=== PATIENT | female | born 1995 | race African-American/Black ===

== ENCOUNTER 2017-09-23 20:27 | Emergency (ER) | payer MEDICAID ==
[2017-09-23] MEDS ORDERED: Ketorolac Tromethamine 60 MG/2 ML VIAL ONE (20:58)
--- NOTE | 2017-09-23 21:39 | RAD ---
RIGHT WRIST THREE VIEWS: 09/23/17 INDICATION: Injury, pain. FINDINGS: There is no fracture or dislocation of the right wrist. Carpal alignment is maintained. IMPRESSION: No acute osseous abnormality. POS: TINA
== END 2017-09-23 21:25 | disposition home or self-care (01) ==
LOC: ERS 20:27
DX: S63.501A Unspecified sprain of right wrist, initial encounter (principal); G43.909 Migraine, unspecified, not intractable, without status migrainosus; F41.9 Anxiety disorder, unspecified; X50.0XXA Overexertion from strenuous movement or load, initial encounter
CPT/HCPCS: 96372; J1885

== ENCOUNTER 2018-07-25 18:41 | Emergency (ER) | payer OTHER | END 2018-07-25 19:43 | disposition home or self-care (01) | LOC: ERS 18:41 | DX: L30.4 Erythema intertrigo (principal); F41.9 Anxiety disorder, unspecified | CPT/HCPCS: 99282 ==

== ENCOUNTER 2019-11-14 07:16 | Outpatient (CLI) | payer OTHER ==
--- NOTE | 2019-11-14 08:15 | ULT ---
Obstetric sonogram. HISTORY: evaluation. Second trimester gestation. FINDINGS: Single intrauterine gestation in breech presentation. Cervix closed and 2.5 cm. Amniotic fluid index 11.7. Grade 0 placenta is posterior. No gross intracranial abnormalities demonstrated. Three-vessel cord sh ows a normal insertion. Four-chamber heart motion at 139 bpm. spine and kidneys are intact as visualized. Measurements are as follows: Biparietal diameter 18 weeks 3 days Head circumference 18 weeks 1 day Abdominal circumference 18 weeks 3 days Femur length 18 weeks 2 days [place]lock 60 percentile. Estimated date of delivery based on today's sonogram 04/13/2020. IMPRESSION : Single viable intrauterine gestation. Estimated gestational age 18 weeks 3 days Cervix 2.5 cm length. Closed.
== END 2019-11-14 07:17 | disposition home or self-care (01) ==
LOC: BICULT 07:16
PROVIDERS: ATTEND Family Medicine
DX: O09.892 Supervision of other high risk pregnancies, second trimester (principal); Z3A.18 18 weeks gestation of pregnancy
CPT/HCPCS: 76805

== ENCOUNTER 2019-11-16 07:19 | Outpatient (CLI) | payer OTHER ==
--- NOTE | 2019-11-16 08:00 | ULT ---
Ultrasound transvaginal: 11/16/2019 7:48 AM HISTORY: 24-year-old female in second trimester of with labor. Evaluate cervical length. FINDINGS: The cervix is 3.5 cm long and closed. There is no placenta previa. IMPRESSION: Cervical length 3.5 cm.
== END 2019-11-16 07:20 | disposition home or self-care (01) ==
LOC: BICULT 07:19
PROVIDERS: ATTEND Family Medicine
DX: O09.212 Supervision of pregnancy with history of pre-term labor, second trimester (principal)
CPT/HCPCS: 76856

== ENCOUNTER 2019-12-14 06:51 | Outpatient (CLI) | payer OTHER ==
--- NOTE | 2019-12-14 07:41 | ULT ---
Obstetric sonogram limited follow-up HISTORY: Evaluate for cervical length. FINDINGS: Cephalic presentation with partially ossified cranial is partially visualized. The cervix is closed and measures 2.6 cm in length. heart motion documented at 140 bpm.
== END 2019-12-14 06:52 | disposition home or self-care (01) ==
LOC: BICULT 06:51
PROVIDERS: ATTEND Family Medicine
DX: O09.892 Supervision of other high risk pregnancies, second trimester (principal)
CPT/HCPCS: 76816

== ENCOUNTER 2019-12-16 18:31 | Inpatient (IN) | payer OTHER ==
[2019-12-16] MEDS ORDERED: hydrALAZINE 20 MG/ML VIAL SLOW IVP PRN (18:45)
[2019-12-16 19:29] VITALS: BP 123/74; TEMP 98.2; BMI 31.9
[2019-12-16] MEDS ORDERED: FLU VACC QS2020-21(6MOS UP)/PF 60 MCG/0.5 ML SYRINGE IM ONE (19:45)
--- NOTE | 2019-12-16 20:21 | PDOC.FPROB ---
FMR OB H&P: HPI - History of Present Illness Chief Complaint: Short cervix Indentification: 24yo at 23.0wks History of Present Illness: 24yo at 23.0wks presents from clinic for short cervix on US. She has hx of labor at 28wks. Currently denies VB/discharge, LOF, cramping/CTX. Endorses FM. Primary Care Physician: Dr Clement FMR OB H&P: Current - Care : 2 Para: 1 Gestational age: 23.0 Due date: 04/13/20 FMR OB H&P: History - Past Medical History PMH: Denies - OB History OB History: Hx of vaginal delivery at 28wks - Surgical History Sx History: Denies - Social History Social History: Denies tobacco, alcohol and drug use. - Family History Family History: Mother- DM, HTN, lupus FMR OB H&P: Medications - Current Home Medications: Medication Instructions Recorded Confirmed Type Pnv No.95/Ferrous Fum/Folic AC 1 tab PO DAILY 12/16/19 12/16/19 History [ Tablet] Allergies/Adverse Reactions: Allergies Allergy/AdvReac Type Severity Reaction Status Date / Time No Known Allergies Allergy Verified 12/16/19 19:24 FMR OB H&P: ROS - Review of Systems General: denies: fever/chills, weight/appetite/sleep changes, fatigue Eyes: denies: vision changes, floaters ENT: denies: nasal congestion, sore throat Cardiovascular: denies: chest pain, edema Respiratory: denies: cough, congestion, shortness of breath Gastrointestinal: denies: abdominal pain, nausea, vomiting Genitourinary (Female): denies: vaginal discharge, vaginal bleeding, contractions Musculoskeletal: denies: pain, swelling Neurologic: denies: weakness, headache Integumentary: denies: rash, lesions FMR OB H&P: Vital Signs - Maternal Vital signs: Vital Signs - First Documented Temp Pulse Resp BP Pulse Ox 98.2 F 100 16 123/74 99 12/16/19 19:22 12/16/19 19:22 12/16/19 19:22 12/16/19 19:22 12/16/19 19:22 - Heart Tones Baseline: 150 FMR OB H&P: Physical Exam - Physical Exam General: NAD, awake, alert and oriented HEENT: normocephalic and atraumatic, conjunctiva clear, grossly normal hearing Neck: supple, trachea midline Heart: RRR, no murmurs/rubs/gallops General: CTAB, no respiratory distress Abdomen: soft, gravid, non-tender Musculoskeletal: pulses present, no misalignment/asymmetry Neurological: no focal deficit Skin: no rash, good tugor Lymphatic: no unusual bruising or bleeding, no petechia Psychiatric: intact recent and remote memory, good judgement and insight, normal mood and affect FMR OB H&P: A/P Disposition: 24yo at 23.0wks presents for short cervix on office US - US preformed here with cervical length 2.2-2.4, previously 2.5. Pt would like cerclage placed. Discussed option of transfer to [place] as no providers are available at this hospital who preform cerclages vs waiting until Thursday when a provider is available. Pt would decided to go ahead and wait until Thursday. We will check a transvaginal cervical length again tomorrow and if any signs of shortening will proceed with transfer. Discussion: Date/Time: 12/16/192017 This H&P was discussed with Dr. Gallegos who agrees with the above documentation and plan. Addendum - Attending - Attending Attestation Date/Time: 12/16/19 1467 I personally evaluated the patient and discussed the management with Dr. Willoughby. I agree with the History, Examination, Assessment and Plan documented above. Patient counseled, will repeat cervical length tomorrow morning to assess stability. Patient added on to the OR schedule for [place] cerclage to be performed by Dr. Fonseca.
[2019-12-16] MEDS ORDERED: Acetaminophen 325 MG TAB PO PRN (20:35)
--- NOTE | 2019-12-16 21:48 | ULT ---
ULTRASOUND OBSTETRICAL LIMITED: 12/16/19 at 8:02 p.m. HISTORY: 24-year-old female in second trimester of experiencing uterine contractions at 23 weeks ges tation. FINDINGS: heart rate is 153 bpm. lie: Vertex. Maternal cervix: Measured on transvaginal images, length of 2.2 to 2.4 cm. Endocervical canal is clos ed. There is no placenta previa. IMPRESSION: Cervical length: Approximately 2.3 cm. POS: JIN
--- NOTE | 2019-12-17 06:22 | PDOC.FM ---
- Subjective Subjective: Feeling well this morning. Denies VB/discharge, LOF, CTX. Endorses FM. - Objective APR Reviewed: Yes Vital Signs & Weight: Vital Signs (12 hours) Temp Pulse Resp BP Pulse Ox 12/16/19 19:22 98.2 F 100 16 123/74 99 Weight Weight 84.368 kg Phys Exam - Physical Examination Constitutional: NAD HEENT: sclera anicteric Neck: supple Respiratory: no wheezing, clear to auscultation bilateral Cardiovascular: RRR, no significant murmur Gastrointestinal: soft, non-tender Musculoskeletal: pulses present Neurological: moves all 4 limbs Psychiatric: normal affect, A&O x 3 Skin: no rash Dx/Plan - Plan Plan: 24yo at 23.1wks admitted for short cervix on repeat US - US preformed here with cervical length 2.2-2.4, previously 2.5. Pt would like cerclage placed. Repeating TVUS cervical length later this morning. If length is stable will continue to monitor and proceed with cerclage on Thursday with Dr Fonseca, if shortening will initiate transfer to [place].
[2019-12-17] MEDS ORDERED: Betamet Acet/Betamet Na Ph 30 MG/5 ML VIAL IM SCH (09:00)
--- NOTE | 2019-12-17 09:06 | PRG ---
DATE OF SERVICE: 12/17/2019 TIME OF EVALUATION: 0832 hours, is now 0842 hours. LABOR AND DELIVERY ON-CALL NOTE: EGA: 23 weeks 1 day In brief, I evaluated the patient in APU1 along with Dr. Kaylynn Smith at bedside. The patient's nurse, Adriana, was in the room as well. In brief, I received to check out from Dr. Gallegos on this patient. The patient is a patient of Dr. Clement and the patient is now at 23 weeks and 1 day with a cervical length that is now between 2.2 to 2.4 cm as a range. By report, it had previously been about 3.5 cm and because of her previous history at 28 weeks, she was brought in for observation. She was discussed at length with the possibility of cerclage yesterday by Dr. Gallegos or expectant management. I talked to the patient and I told her I did not feel comfortable myself personally doing a cerclage at 23 weeks and that one of our partners, Dr. Fonseca, likely felt more comfortable, but we would have to wait for his direct input. He is not formally aware of her care at this time. He is not instructor physical education. For this discussion at bedside, I discussed with her that we will continue to follow cervical length progression with ultrasounds maybe every 24 to 48 hours and today because she is now 23 weeks and 1 day, we will administer steroids for lung maturity in accordance with ACOG guidelines. I did advise her that if her cervical length is at some point found to be less than 2.0 cm, I would recommend transport to another facility for a 2nd trimester cerclage unless Dr. Fonseac is on duty at that time and is comfortable with that procedure. I did discuss with her that there is absence of data suggesting that labor is prevented by bedrest, so I recommended her to have ambulation as tolerated unless there is a change in her current condition (bulging membranes or extreme cervical shortening defined as less than 1.5 cm). I did ask her if she had any questions, she said no. She stated that she and agreed with the plan of care at this time. DIAGNOSES: 1. 23 weeks and 1 day gestation. 2. History of . 3. Cervical length borderline at 2.2 to 2.4 cm. 4. Steroids for lung maturation. Job ID: [id number] [facility]
--- NOTE | 2019-12-17 13:32 | PDOC.BPN ---
- Brief Progress Note Encounter Date: 12/17/19 Encounter Time: 13:30 Repeat TVUS for today with CX length stable at 2.3cm. Patient well. Dr mcneil also notified.
--- NOTE | 2019-12-17 13:36 | ULT ---
Exam: Limited OB ultrasound: HISTORY: Cervical length evaluation only COMPARISON: 12/16/2019 FINDINGS: Cervical length equals 2.3 cm stable from prior study. IMPRESSION: Stable cervical length 2.3 cm.
--- NOTE | 2019-12-17 13:55 | PDOC.BPN ---
- Brief Progress Note Encounter Date: 12/17/19 Encounter Time: 13:50 Corrected EDC per Pura is 04/17/2019 so makes her 22 weeks 5 days. Per [place], who communicated with her, she know desires transport to [place] for cerclage. Steroids x 1 was given this AM as she was thought to be [address] Clement has requested we start the transfer to [place] process to [facility] for shortened CX, possible cerclage, for HX 28 week delivery. Hillary notified by me
[2019-12-17 14:01] LABS: SARS-CoV-2 MS2 Positive; SARS-CoV-2 N Gene Negative; SARS-CoV-2 S Gene Negative; SARS-CoV-2 by NAA Not Detected (NotDetected); SARS-CoV-2 orf1ab Negative
--- NOTE | 2019-12-17 15:14 | DIS ---
DATE OF ADMISSION: 12/16/2019 DATE OF DISCHARGE: 12/17/2019 DATE OF TRANSFER: 12/17/2019. PRINCIPAL DIAGNOSES: 1. 22-week . 2. Cervical shortening. DISPOSITION: Transfer to [facility] per Dr. Clement. HOSPITAL COURSE: In brief, this is a patient who was admitted per Dr. Clement on December [address] Gallegos on-call as the HISTOTECHNOLOGIST physician. This patient has a history of 28-week delivery and she was brought inside the hospital for observation because of possible cervical shortening. She has a previous ultrasound, which showed a cervical length of about 35 mm and it was showing some cervical shortening at around the border evon of 25 mm (2.5 cm) yesterday. Dr. Gallegos was not comfortable with cervical cerclage nor was I as she was already at 22 to 23 weeks, and so, the decision was made to keep her in observation to make sure she was stable. On December 17, 2019, Dr. Clement recommended transfer to [place] for possible cerclage placement by [facility]. The patient agreed. For full details, please turn to the hospital record that day. Job ID: [id number]
--- NOTE | 2019-12-17 18:15 | PDOC.BPN ---
- Brief Progress Note Encounter Date: 12/17/19 Encounter Time: 18:15 Follow up: Patient will be transferred tomorrow AM when they have a bed available. Transfer done by Dr Garza. Carvajal.
== END 2019-12-18 09:30 | disposition short-term general hospital (02) | DRG 833 ==
LOC: L&D/OP 18:31 → L&D 22:11
PROVIDERS: ADMIT Family Medicine; ATTEND Family Medicine
DX: O26.872 Cervical shortening, second trimester (principal); Z3A.23 23 weeks gestation of pregnancy; Z20.828 Contact with and (suspected) exposure to other viral communicable diseases; Z23 Encounter for immunization
CPT/HCPCS: 76815; 87635; 99285; J0702; U0003

== ENCOUNTER 2020-01-02 18:16 | Day surgery (SDC) | payer OTHER ==
[2020-01-02 18:51] VITALS: BP 129/66; TEMP 98.8; BMI 30.7
[2020-01-02] MEDS ORDERED: hydrALAZINE 20 MG/ML VIAL SLOW IVP PRN (19:00)
--- NOTE | 2020-01-02 19:04 | PDOC.LDHP ---
Labor and Delivery H&P Chief complaint: abdominal pain (25 weeks) HPI: Patient of Dr Clement Patient had a cerclage at [facility] earlier this month CC: Lower abdominal cramps EGA 25 weeks HPI: 24 yo at 25 weeks here for above CC. Has cerclage placed. No LOF, no VB, had emesis x 1 ealier this afternoon. No RUQ pain, good FM, no fevers.Cramps come and go. No recent trauma. Review of Systems: : neg constipation or diarrhea, positive emesis x1 General: no fever Resp: no SOB OB: no LOF, no VB Good FM Current gestational age (weeks): 25 Dating criteria: last menstrual period Grav: 2 Para: 1 OB History Details: at 28 weeks in past Has CERVICAL LENGTH sono 12/16 and was 2.3cm...[place] [facility] [facility] then Current complications: none Abnormal US findings: No Past Medical History: None Past Surgical: cerclage Current medications: pre-carlee vitamins Allergies/Adverse Reactions: Allergies Allergy/AdvReac Type Severity Reaction Status Date / Time No Known Allergies Allergy Verified 01/02/20 18:49 Social history: none - Physical Exam Vital signs reviewed and normal: yes (HR 115 T98.8 120/70 16) General: NAD Heart: RRR Lungs: nonlabored breathing Abdomen: gravid FHT: category 1 (for age) [place] contractions every: none - Assessment LAP at 25 weeks, has cerclage in. Emesis x1. - Plan Plan: observation in L&D (Check TVUS. Last was 2.3cm on 12/16. Check CMP for emesis.)
--- NOTE | 2020-01-02 19:27 | PDOC.BPN ---
- Brief Progress Note Patient has MFM appointment tomorrow. I discussed the CX at 2.0 to 2.1cm TVUS with her. Baby is head down with normal FHTs. We are awaiting CMP. Clinically stable. I discussed with her that we cannot add any other RX at this time as steroids have been given and she is on progesterone and cerclage in use already...needs expectant care at this point.
[2020-01-02 20:31] LABS: ALT (SGPT) 12 U/L (8-55); AST (SGOT) 11 U/L (5-34); Albumin 3.3 g/dL (3.5-5.0); Alkaline Phosphatase 85 U/L (40-110); Anion Gap 14 mmol/L (10-20); BUN (Urea Nitrogen) 7 mg/dL (7.0-18.7); Bilirubin, Total 0.3 mg/dL (0.2-1.2); Calc. Creatinine Clearance 158 mL/min (70-130); Carbon Dioxide 21 mmol/L (22-29); Chloride 102 mmol/L (98-107); Estimated GFR-MDRD Greater than 90; Globulin 4.2 g/dL (2.4-3.5); Glucose 96 mg/dL (70-105); Potassium 3.8 mmol/L (3.5-5.1); Protein, Total 7.5 g/dL (6.0-8.3); Sodium 133 mmol/L (136-145)
--- NOTE | 2020-01-02 20:35 | ULT ---
ULTRASOUND OBSTETRICAL LIMITED: Date: 01-02-2020 History: 24-year-old female in third trimester of . Evaluate cervical length. FINDINGS: Using endovaginal transducer, the closed cervical length is measured as 2 cm. No placenta previa. Ant erior placenta. IMPRESSION: 2 cm closed cervix. POS: JIN
--- NOTE | 2020-01-02 20:42 | PDOC.BPN ---
- Brief Progress Note LFTs ok
--- NOTE | 2020-01-02 20:47 | PDOC.BPN ---
- Brief Progress Note Noted pulse of 120s. We will give 1 liter LR for now. Also with 150s systolic but at 25 weeks we would just follow conservatively.
[2020-01-02] MEDS ORDERED: Lactated Ringer's 1,000 ML IV SCH (21:00)
[2020-01-02] MEDS ORDERED: FLU VACC QS2020-21(6MOS UP)/PF 60 MCG/0.5 ML SYRINGE IM ONE (21:00)
--- NOTE | 2020-01-02 21:33 | PDOC.BPN ---
- Brief Progress Note Patient is having some nausea. I have ordered zofran x1 IV and I will get cath UA to see if that was contributing any to the LAP.
[2020-01-02] MEDS ORDERED: Ondansetron PF 4 MG/2 ML Vial ONE (21:36)
[2020-01-02] MEDS ORDERED: Ondansetron PF 4 MG/2 ML Vial IVP SCH (21:45)
[2020-01-02 22:52] LABS: Bacteria/HPF 4+ HPF (None Seen); Bilirubin Negative (Negative); Blood, Urine Trace (Negative); Clarity Turbid (Clear); Glucose, Urine (Dipstick) Normal (Negative); Ketone, Urine Trace mg/dL (Negative); Leukocyte 500 Leu/uL (Negative); Nitrite 2+ (Negative); Protein, Urine (Dipstick) 20 mg/dL (Neg-Trace); RBC/HPF 0-3 HPF (0-3); Specific Gravity, Urine 1.013 (1.002-1.036); Squamous Epithelial 0-3 HPF (0-3); Urobilinogen Normal mg/dL (Less than 2); WBC/HPF Greater than 50 HPF (0-3)
--- NOTE | 2020-01-02 23:01 | PDOC.BPN ---
- Brief Progress Note I AM AT BEDSIDE NOW. SHE STATES SHE FEELS OK. BPS NOTED WITH SYSTOLICS AT 150S BUT STATES PAST BPS HAVE BEEN OK. AWAITING URINE AND COVID RAPID SCREEN.DENIES CHOWDHURY AT THIS TIME. APPOITMENT TOMORROW IS AT 1100
[2020-01-02 23:02] LABS: SARS-CoV-2 NAA Rapid Test Not Detected (NotDetected)
--- NOTE | 2020-01-02 23:03 | PDOC.BPN ---
- Brief Progress Note URINE WITH EVIDENCE OF UTI. WE WILL GIVE ROCEPHIN 1 GRAM IV NOW AND HOME WITH MACROBID. I DISCUSSED THIS WITH HER
--- NOTE | 2020-01-02 23:17 | PDOC.BPN ---
- Brief Progress Note sars screen negative. Home and recheck BP tomorrow with MFM
[2020-01-02] MEDS ORDERED: cefTRIAXone\\ROCEPHIN 1 GM in Sodium Chloride 0.9% 100 ML IVPB SCH (23:30)
== END 2020-01-03 01:17 | disposition home or self-care (01) ==
LOC: L&D/OP 18:16
PROVIDERS: ATTEND Obstetrics & Gynecology Reproductive Endocrinology
DX: O99.891 Other specified diseases and conditions complicating pregnancy (principal); R10.30 Lower abdominal pain, unspecified; O21.2 Late vomiting of pregnancy; O09.212 Supervision of pregnancy with history of pre-term labor, second trimester; O26.872 Cervical shortening, second trimester; O34.32 Maternal care for cervical incompetence, second trimester; Z3A.25 25 weeks gestation of pregnancy; Z20.828 Contact with and (suspected) exposure to other viral communicable diseases
CPT/HCPCS: 36415; 80053; 81001; 96361; 96365; 96375; 99283; J0696; J2405; J3490; U0002

== ENCOUNTER 2020-02-08 19:28 | Day surgery (SDC) | payer OTHER ==
[2020-02-08 20:01] VITALS: BP 135/83; TEMP 97.8; BMI 35.4
--- NOTE | 2020-02-08 20:41 | PDOC.LDHP ---
Labor and Delivery H&P Chief complaint: other (spotting) HPI: 25 y/o at 30w2d, patient of Dr. Clement, presents with pink tinged discharge at work. Denies heavy VB, LOF, ctx, or decreased FM. Denies other complaints. Has a cerclage in place and receives 17-OH Prog. ROS neg for HEENT, CV, pulm, gi, gu, neuro, psych, skin, musculoskeletal or constitutional symptoms other than mentioned above. OB History Details: 1 prior at 28 weeks Current complications: other (cerclage) Past Medical History: None Current medications: pre-carlee vitamins, other (progesterone) Previous surgical history: other (cerclage) Allergies/Adverse Reactions: Allergies Allergy/AdvReac Type Severity Reaction Status Date / Time No Known Allergies Allergy Verified 02/08/20 19:49 Social history: none - Physical Exam Vital signs reviewed and normal: yes General: NAD, resting Lungs: nonlabored breathing Abdomen: gravid Extremeties: no edema FHT: category 1 (135, mod variability, + accels, no decels) [place] contractions every: 4 mins, resolved - Vaginal Exam cm dilated: 0 (scant pink tinged discharge) - OB Labs Blood type: A RH: positive - Assessment 25 y/o at 30w2d with no e/o active bleeding or acute process. Ctx not painful and resolved with oral hydration. status reassuring with reactive NST. - Plan -: D/c home with precautions. Advised to keep all appointments.
[2020-02-08] MEDS ORDERED: hydrALAZINE 20 MG/ML VIAL SLOW IVP PRN (22:20)
== END 2020-02-08 23:30 | disposition home or self-care (01) ==
LOC: L&D/OP 19:28
PROVIDERS: ATTEND Family Medicine
DX: O26.853 Spotting complicating pregnancy, third trimester (principal); O34.33 Maternal care for cervical incompetence, third trimester; Z3A.30 30 weeks gestation of pregnancy
CPT/HCPCS: 99283

== ENCOUNTER 2020-02-14 08:11 | Day surgery (SDC) | payer OTHER ==
[2020-02-14 08:47] VITALS: BMI 31.6
[2020-02-14] MEDS ORDERED: hydrALAZINE 20 MG/ML VIAL SLOW IVP PRN (09:03)
[2020-02-14 09:23] LABS: Amnisure Test No Membranes Rupture (No Rupture)
[2020-02-14 09:25] LABS: Amnisure Internal Control QC ACCEPTABLE (ACCEPTABLE)
--- NOTE | 2020-02-14 13:41 | SS ---
DATE OF ADMISSION: 02/14/2020 DATE OF DISCHARGE: 02/14/2020 LABOR AND DELIVERY TRIAGE NOTE. REGULAR PHYSICIAN: Rivera Clement MD EVALUATING PHYSICIAN: Champ Gordon MD CHIEF COMPLAINT: [place] discharge when she wipes. HISTORY OF PRESENT ILLNESS: Ms. Mccoy is a 25-year-old black G2, P0-1-0-1 with an estimated date of confinement of 04/16/2020, who presents complaining of a pink discharge when she wipes using the restroom. Of note is the fact that she had a cerclage earlier in her at [facility] [place], and her care has been with Dr. Clement. She also had a similar complaint 3 or 4 days ago and was evaluated by Krystal Gallegos MD, with no significant findings. At the present time, she denies leakage of fluid, heavy vaginal bleeding, decreased movement, or change in bowel or bladder habits. PAST OBSTETRICAL HISTORY: Includes a vaginal delivery at 28 weeks. PAST MEDICAL HISTORY: None. PAST SURGICAL HISTORY: Cerclage as above. CURRENT MEDICATIONS: 1. vitamins. 2. Progesterone. ALLERGIES: NO KNOWN ALLERGIES. SOCIAL HISTORY: Denies tobacco, alcohol, or drug use. FAMILY HISTORY: Unremarkable. REVIEW OF SYSTEMS: Denies nausea, vomiting, fever, chills, ruptured membranes, vaginal bleeding, or decreased movement. PHYSICAL EXAMINATION: VITALS: In triage, her vital signs are stable. She is afebrile. GENERAL: She is in no distress. ABDOMEN: Soft, nontender, and gravid. heart rate tracing is stable. There are no decelerations. Only an occasional uterine contraction is seen. There is no evidence of regular uterine contractions. Sterile speculum exam shows a blood-tinged price discharge. No evidence of amniotic fluid is seen. On digital pelvic examination, the cervix is closed, and the cerclage is intact. LABORATORY DATA: AmniSure returns negative. VPIII testing returns positive for Gardnerella. ASSESSMENT: 1. A 31 and 1/7 week intrauterine with cerclage in place. 2. No evidence of ruptured membranes or labor. 3. Gardnerella vaginitis. PLAN: The patient will be dismissed to home. She was told to rest at home and to keep herself well hydrated. Signs and symptoms of labor were discussed with her in detail. She was given a prescription for Flagyl 250 mg one p.o. t.i.d. for a week. She voiced understanding of her discharge instructions and states that she has an appointment with Dr. Clement this week. Job ID: [id number]
[2020-02-15] MEDS ORDERED: FLU VACC QS2020-21(6MOS UP)/PF 60 MCG/0.5 ML SYRINGE IM ONE (09:45)
== END 2020-02-14 11:55 | disposition home health service (06) ==
LOC: L&D/OP 08:11
PROVIDERS: ATTEND Family Medicine
DX: O23.593 Infection of other part of genital tract in pregnancy, third trimester (principal); B96.89 Other specified bacterial agents as the cause of diseases classified elsewhere; O34.33 Maternal care for cervical incompetence, third trimester; Z3A.31 31 weeks gestation of pregnancy
CPT/HCPCS: 84112; 87480; 87510; 87660

== ENCOUNTER 2020-03-19 08:22 | Outpatient (CLI) | payer OTHER ==
[2020-03-19 20:48] LABS: SARS-CoV-2 PCR by NAA Not Detected (NotDetected)
== END 2020-03-19 08:23 | disposition home or self-care (01) ==
LOC: LABBT 08:22
PROVIDERS: ATTEND Family Medicine
DX: Z01.812 Encounter for preprocedural laboratory examination (principal); Z20.822 Contact with and (suspected) exposure to COVID-19
CPT/HCPCS: 87635; U0003; U0005

== ENCOUNTER 2020-04-14 11:38 | Emergency (ER) | payer OTHER ==
[2020-04-14 12:14] LABS: #Basophils 0.1 thou/uL (0.0-0.2); #Eosinphils 0.1 thou/uL (0.0-0.7); #Lymphocytes 1.9 thou/uL (1.20-3.40); #Monocytes 0.4 thou/uL (0.11-0.59); #Neutrophils 4.4 thou/uL (1.40-6.50); %Basophils 0.9 % (0.0-1.0); %Eosinophils 1.7 % (0.0-10.0); %Lymphocytes 27.5 % (21.0-51.0); %Monocytes 6.2 % (0.0-10.0); %Neutrophils 63.7 % (42.0-75.0); Hemoglobin 10.7 g/dL (12.0-16.0); Mean Corpuscular HGB CONC 32.5 g/dL (32.0-36.0); Mean Corpuscular Hemoglobin 27.2 pg (27.0-31.0); Mean Corpuscular Volume 83.6 fL (78.0-98.0); Mean Platelet Volume 6.7 fL (7.4-10.4); Platelet Count 517 thou/uL (130-400); RBC Distribution Width 14.5 % (11.5-14.5); Red Blood Cell (RBC) Count 3.94 mill/uL (4.20-5.40); White Blood Cell (WBC) Count 6.9 thou/uL (4.8-10.8)
[2020-04-14 13:04] LABS: ALT (SGPT) 15 U/L (8-55); AST (SGOT) 9 U/L (5-34); Albumin 3.6 g/dL (3.5-5.0); Alkaline Phosphatase 107 U/L (40-110); Anion Gap 16 mmol/L (10-20); BUN (Urea Nitrogen) 8 mg/dL (7.0-18.7); Bilirubin, Total 0.2 mg/dL (0.2-1.2); Calc. Creatinine Clearance 0 mL/min (70-130); Calcium 9.1 mg/dL (7.8-10.44); Carbon Dioxide 21 mmol/L (22-29); Chloride 106 mmol/L (98-107); Globulin 3.8 g/dL (2.4-3.5); Glucose 109 mg/dL (70-105); Protein, Total 7.4 g/dL (6.0-8.3); Sodium 139 mmol/L (136-145)
[2020-04-14 13:33] LABS: Bacteria/HPF None Seen HPF (None Seen); Bilirubin Negative (Negative); Blood, Urine Trace (Negative); Clarity Clear (Clear); Glucose, Urine (Dipstick) Normal (Negative); Ketone, Urine Negative (Negative); Leukocyte 75 Leu/uL (Negative); Nitrite Negative (Negative); Protein, Urine (Dipstick) 30 mg/dL (Neg-Trace); RBC/HPF 0-3 HPF (0-3); Specific Gravity, Urine 1.014 (1.002-1.036); Urobilinogen Normal mg/dL (Less than 2); pH, Urine 6.5 (5.0-9.0)
== END 2020-04-14 14:00 | disposition home or self-care (01) ==
LOC: ERS 11:38
DX: I10 Essential (primary) hypertension (principal); Z79.899 Other long term (current) drug therapy
CPT/HCPCS: 36415; 80053; 81003; 81015; 85025; 99283